=== PATIENT | female | born 1930 | race Caucasian/White ===

== ENCOUNTER → 2016-10-24 | Outpatient (CLI) | payer OTHER ==
[~2016-10-24] MED LIST: ASPI-496 PO; BISA10SU65 PR; CALC1TAB PO; CILO100T17 PO; DOCU-30 PO; ENOX40SY4 SQ; GABA300C10 PO; HYDR-3138 PO; INSU100I18 SQ-INSULIN; IPRA12.9 INH; LISI2.5T PO; MERO1VIA15 IV; METO25TA35 PO; NICO1PAT4 TD; PIPE3.375 IV; POLY17PO5 PO; PREG50CA PO; RANI150C PO; SIMV20TA3 PO; TRAM50TA2 PO; UBID100C11 PO
== END | disposition home or self-care (01) ==
LOC: CFH 09:54
PROVIDERS: ATTEND Internal Medicine Cardiovascular Disease
DX: I08.3 Combined rheumatic disorders of mitral, aortic and tricuspid valves (principal); I10 Essential (primary) hypertension; I37.1 Nonrheumatic pulmonary valve insufficiency; Z87.891 Personal history of nicotine dependence; Z86.73 Personal history of transient ischemic attack (TIA), and cerebral infarction without residual deficits; Z85.828 Personal history of other malignant neoplasm of skin
CPT/HCPCS: 93306

== ENCOUNTER → 2017-02-19 | Outpatient (CLI) | payer OTHER ==
[~2017-02-19] MED LIST changes: +DOCU-131 PO; -DOCU-30 PO; -HYDR-3138 PO; +HYDR-3237 PO; +NICO1PAT13 TD; -NICO1PAT4 TD; -UBID100C11 PO; +UBID100C41 PO
== END | disposition home or self-care (01) ==
LOC: CVU 11:44
PROVIDERS: ATTEND Surgery Vascular Surgery
DX: I70.202 Unspecified atherosclerosis of native arteries of extremities, left leg (principal); I74.5 Embolism and thrombosis of iliac artery; I74.8 Embolism and thrombosis of other arteries; I10 Essential (primary) hypertension; E11.9 Type 2 diabetes mellitus without complications; Z86.73 Personal history of transient ischemic attack (TIA), and cerebral infarction without residual deficits; Z87.891 Personal history of nicotine dependence; Z85.820 Personal history of malignant melanoma of skin; Z95.820 Peripheral vascular angioplasty status with implants and grafts
CPT/HCPCS: 93922; 93925

== ENCOUNTER → 2017-08-16 | Outpatient (CLI) | payer OTHER ==
[~2017-08-16] MED LIST changes: +NICO-486 TD; -NICO1PAT13 TD
== END | disposition home or self-care (01) ==
LOC: CVU 12:44
PROVIDERS: ATTEND Surgery Vascular Surgery
DX: I70.203 Unspecified atherosclerosis of native arteries of extremities, bilateral legs (principal); E11.9 Type 2 diabetes mellitus without complications; I10 Essential (primary) hypertension; Z72.0 Tobacco use; Z85.820 Personal history of malignant melanoma of skin; Z85.51 Personal history of malignant neoplasm of bladder; I25.2 Old myocardial infarction
CPT/HCPCS: 93922; 93925

== ENCOUNTER 2018-03-11 00:21 | Inpatient (IN) | payer OTHER ==
[~2018-03-11] VITALS: Ht 157.5 cm; Wt 61.6 kg
[2018-03-11 00:54] LABS: BASOPHILS # (AUTO) 0.06 x10^3/uL (0-0.1); BASOPHILS % (AUTO) 1 % (0-1); EOSINOPHILS # (AUTO) 0.09 x10^3/uL (0-0.4); EOSINOPHILS % (AUTO) 1 % (1-7); LYMPHOCYTES # (AUTO) 2.39 x10^3/uL (1-3.4); LYMPHOCYTES % (AUTO) 33 % (22-44); MD NO; MEAN CORPUSCULAR HGB CONC 34.3 g/dL (32.4-35.8); MEAN CORPUSCULAR VOLUME 90.3 fL (80-100); MEAN PLATELET VOLUME 8.6 fL (7.4-10.4); MONOCYTES # (AUTO) 0.43 x10^3/uL (0.2-0.8); MONOCYTES % (AUTO) 6 % (2-9); NEUTROPHILS # (AUTO) 4.19 x10^3/uL (1.8-6.8); NEUTROPHILS % (AUTO) 59 % (42-75); PLATELET COUNT 234 x10^3/uL (130-400); RED BLOOD COUNT 4.86 x10^6/uL (3.82-5.3); RED CELL DISTRIBUTION WIDTH 14.1 % (9.6-15.2)
[2018-03-11 00:57] LABS: PH, VENOUS 7.418 pH (7.320-7.420)
[2018-03-11] MEDS ORDERED: SODIUM CHLORIDE 0.9% 1,000ML IVBOLUS ONE (01:00)
[2018-03-11] MEDS ORDERED: INSULIN REGULAR 100 UNITS/ML, 3ML VIAL SQ-INSULIN ONE (01:00)
[2018-03-11 01:03] LABS: ALANINE AMINOTRANSFERASE 18 U/L (12-78); ANION GAP 10 mmol/L (5-15); CALCIUM 8.9 mg/dL (8.5-10.1); CHLORIDE 104 mmol/L (98-107)
[2018-03-11 01:06] LABS: ALKALINE PHOSPHATASE 101 U/L (45-117); BILIRUBIN,TOTAL 0.4 mg/dL (0.2-1.0); TOTAL PROTEIN 7.4 g/dL (6.4-8.2)
[2018-03-11 01:07] LABS: TROPONIN I < 0.015 ng/mL (0.000-0.045)
[2018-03-11 01:53] LABS: MICROSCOPIC AUTO
[2018-03-11 01:56] LABS: CULTURE INDICATED? YES
[2018-03-11] MEDS ORDERED: CEFTRIAXONE 1,000 MG in SODIUM CHLORIDE 0.9% 50 ML IV ONE (02:00)
[2018-03-11 02:22] LABS: ACETONE, SERUM Small (20mg/dL) mg/dL (Negative)
[2018-03-11] MEDS ORDERED: CEFTRIAXONE PMX 1GM/50ML 50 ML ONE (02:52)
[2018-03-11 04:55] VITALS: BP 114/69
[2018-03-11] MEDS ORDERED: hydrALAzine 20 MG/ML, 1ML IVPush PRN (05:00)
[2018-03-11] MEDS ORDERED: ONDANSETRON 2MG/ML, 2ML IVPush PRN (05:00)
[2018-03-11] MEDS ORDERED: ONDANSETRON ODT 4 MG PO PRN (05:00)
[2018-03-11] MEDS ORDERED: POLYETHYLENE GLYCOL 17 GM PACKET PO PRN (05:00)
[2018-03-11] MEDS ORDERED: INSULIN GLARGINE 100 UNITS/ML, PEN SQ-INSULIN ONE (05:00)
[2018-03-11] MEDS ORDERED: ACETAMINOPHEN 325 MG TABLET PO PRN (05:00)
[2018-03-11] MEDS ORDERED: CALCIUM CARBONATE 500 MG TAB.CHEW PO PRN (05:30)
[2018-03-11] MEDS ORDERED: IPRATROPIUM 0.5 MG/2.5 ML INHA NPPB PRN (05:30)
[2018-03-11] MEDS: SODIUM CHLORIDE 0.9% 1,000 ML IV SCH ×2 (05:39→16:22)
[2018-03-11] MEDS: HEPARIN 5,000 UNITS/ML, 1ML SQ SCH ×3 (05:45→20:41)
[2018-03-11 06:42] VITALS: BP 114/66
[2018-03-11] MEDS: PANTOPROZOLE 40MG TABLET PO SCH (07:52)
[2018-03-11] MEDS: INSULIN LISPRO 100 UNITS/ML, PEN SQ-INSULIN SCH ×4 (07:55→21:00)
[2018-03-11 09:16] LABS: ANION GAP 9 mmol/L (5-15); CALCIUM 8.3 mg/dL (8.5-10.1); CHLORIDE 114 mmol/L (98-107); CREATININE 1.08 mg/dL (0.55-1.02)
[2018-03-11] MEDS: CILOSTAZOL 100 MG TABLET PO SCH ×2 (10:30→20:41)
[2018-03-11] MEDS: ASPIRIN 81 MG TABLET EC PO SCH (10:30)
[2018-03-11] MEDS: PREGABALIN 25 MG CAPSULE PO SCH (10:30)
[2018-03-11] MEDS: NICOTINE 21 MG/24 HR PATCH.TD24 TD SCH (10:31)
[2018-03-11] MEDS: GABAPENTIN 300 MG CAPSULE PO SCH ×3 (10:34→20:41)
[2018-03-11 14:34] VITALS: BP 94/56
[2018-03-11 18:30] VITALS: BP 100/60
[2018-03-12 01:33] VITALS: BP 108/68
[2018-03-12] MEDS: CEFTRIAXONE 1,000 MG in SODIUM CHLORIDE 0.9% 50 ML IV SCH (02:34)
[2018-03-12] MEDS: HEPARIN 5,000 UNITS/ML, 1ML SQ SCH ×3 (04:41→20:03)
[2018-03-12 05:47] LABS: ANION GAP 7 mmol/L (5-15); CALCIUM 7.8 mg/dL (8.5-10.1); CHLORIDE 115 mmol/L (98-107)
[2018-03-12 05:49] LABS: CREATININE 0.95 mg/dL (0.55-1.02)
[2018-03-12 05:55] LABS: BASOPHILS # (AUTO) 0.05 x10^3/uL (0-0.1); BASOPHILS % (AUTO) 1 % (0-1); EOSINOPHILS # (AUTO) 0.11 x10^3/uL (0-0.4); EOSINOPHILS % (AUTO) 1 % (1-7); LYMPHOCYTES # (AUTO) 1.32 x10^3/uL (1-3.4); LYMPHOCYTES % (AUTO) 14 % (22-44); MD NO; MEAN CORPUSCULAR HGB CONC 33.1 g/dL (32.4-35.8); MEAN CORPUSCULAR VOLUME 90.6 fL (80-100); MEAN PLATELET VOLUME 8.6 fL (7.4-10.4); MONOCYTES # (AUTO) 0.32 x10^3/uL (0.2-0.8); MONOCYTES % (AUTO) 3 % (2-9); NEUTROPHILS # (AUTO) 7.97 x10^3/uL (1.8-6.8); NEUTROPHILS % (AUTO) 82 % (42-75); PLATELET COUNT 204 x10^3/uL (130-400); RED BLOOD COUNT 4.43 x10^6/uL (3.82-5.3); RED CELL DISTRIBUTION WIDTH 14.2 % (9.6-15.2)
[2018-03-12] MEDS: SODIUM CHLORIDE 0.9% 1,000 ML IV SCH ×2 (06:11→19:48)
[2018-03-12] MEDS: INSULIN LISPRO 100 UNITS/ML, PEN SQ-INSULIN SCH ×4 (07:26→20:09)
[2018-03-12 07:32] VITALS: BP 108/65
[2018-03-12] MEDS: PANTOPROZOLE 40MG TABLET PO SCH (07:36)
[2018-03-12 08:24] LABS: HEMOGLOBIN A1C 13.6 % (4.2-6.3)
[2018-03-12] MEDS: GABAPENTIN 300 MG CAPSULE PO SCH ×3 (09:38→19:48)
[2018-03-12] MEDS: ASPIRIN 81 MG TABLET EC PO SCH (09:38)
[2018-03-12] MEDS: CILOSTAZOL 100 MG TABLET PO SCH ×2 (09:38→19:47)
[2018-03-12] MEDS: PREGABALIN 25 MG CAPSULE PO SCH (09:38)
[2018-03-12] MEDS: NICOTINE 21 MG/24 HR PATCH.TD24 TD SCH (09:39)
[2018-03-12 13:49] VITALS: BP 100/57
[2018-03-12 18:56] VITALS: BP 114/80
[2018-03-12] MEDS ORDERED: INSULIN GLARGINE 100 UNITS/ML, PEN SQ-INSULIN SCH (21:00)
[2018-03-13 01:33] VITALS: BP 118/73
[2018-03-13] MEDS: CEFTRIAXONE 1,000 MG in SODIUM CHLORIDE 0.9% 50 ML IV SCH (02:56)
[2018-03-13] MEDS: HEPARIN 5,000 UNITS/ML, 1ML SQ SCH ×2 (04:26→13:43)
[2018-03-13] MEDS: INSULIN LISPRO 100 UNITS/ML, PEN SQ-INSULIN SCH ×2 (07:00→12:16)
[2018-03-13] MEDS: PANTOPROZOLE 40MG TABLET PO SCH (07:41)
[2018-03-13 07:45] VITALS: BP 130/67
[2018-03-13] MEDS: CILOSTAZOL 100 MG TABLET PO SCH (09:02)
[2018-03-13] MEDS: PREGABALIN 25 MG CAPSULE PO SCH (09:02)
[2018-03-13] MEDS: ASPIRIN 81 MG TABLET EC PO SCH (09:02)
[2018-03-13] MEDS: NICOTINE 21 MG/24 HR PATCH.TD24 TD SCH (09:03)
[2018-03-13] MEDS: SODIUM CHLORIDE 0.9% 1,000 ML IV SCH (10:47)
[2018-03-13] MEDS ORDERED: INSU100I13 SQ-INSULIN (11:25)
[2018-03-13] MEDS ORDERED: CEFD300C37 PO (11:25)
[2018-03-13 12:53] VITALS: BP 166/83
== END 2018-03-13 15:45 | disposition home health service (06) | DRG 682 ==
LOC: ED 01:04 → EDIP 02:00 → 3NE 04:50
PROVIDERS: ADMIT Hospitalist; ATTEND Hospitalist
DX: N17.9 Acute kidney failure, unspecified (principal); E43 Unspecified severe protein-calorie malnutrition; E87.1 Hypo-osmolality and hyponatremia; I13.0 Hypertensive heart and chronic kidney disease with heart failure and stage 1 through stage 4 chronic kidney disease, or unspecified chronic kidney disease; E11.65 Type 2 diabetes mellitus with hyperglycemia; E11.22 Type 2 diabetes mellitus with diabetic chronic kidney disease; E11.40 Type 2 diabetes mellitus with diabetic neuropathy, unspecified; I71.9 Aortic aneurysm of unspecified site, without rupture; I25.10 Atherosclerotic heart disease of native coronary artery without angina pectoris; E11.51 Type 2 diabetes mellitus with diabetic peripheral angiopathy without gangrene; K21.9 Gastro-esophageal reflux disease without esophagitis; N30.90 Cystitis, unspecified without hematuria; E86.0 Dehydration; F17.210 Nicotine dependence, cigarettes, uncomplicated; H91.90 Unspecified hearing loss, unspecified ear; I50.9 Heart failure, unspecified; N18.9 Chronic kidney disease, unspecified; B96.1 Klebsiella pneumoniae [K. pneumoniae] as the cause of diseases classified elsewhere; J44.9 Chronic obstructive pulmonary disease, unspecified; Z86.73 Personal history of transient ischemic attack (TIA), and cerebral infarction without residual deficits; Z90.49 Acquired absence of other specified parts of digestive tract; Z90.710 Acquired absence of both cervix and uterus; Z79.4 Long term (current) use of insulin; Z89.411 Acquired absence of right great toe; Z90.89 Acquired absence of other organs; Z68.24 Body mass index [BMI] 24.0-24.9, adult; Z88.5 Allergy status to narcotic agent; Z88.8 Allergy status to other drugs, medicaments and biological substances
CPT/HCPCS: 36415; 71045; 80048; 80053; 81001; 82010; 82803; 82962; 83036; 83735; 84100; 84484; 85025; 87077; 87086; 87186; 93005; 96360; 96361; 96372; 99285; G0378; J0696; J1644; J1815; J7030

== ENCOUNTER 2018-04-03 18:49 | Emergency (ER) | payer OTHER ==
[~2018-04-03] VITALS: Ht 162.6 cm; Wt 59.0 kg
[~2018-04-03 18:49] MED LIST changes: +CEFD300C37 PO; +INSU100I13 SQ-INSULIN
[2018-04-03 19:05] VITALS: BP 133/73
[2018-04-03 19:46] LABS: BASOPHILS # (AUTO) 0.02 x10^3/uL (0-0.1); BASOPHILS % (AUTO) 0 % (0-1); EOSINOPHILS # (AUTO) 0.18 x10^3/uL (0-0.4); EOSINOPHILS % (AUTO) 2 % (1-7); LYMPHOCYTES # (AUTO) 1.96 x10^3/uL (1-3.4); LYMPHOCYTES % (AUTO) 20 % (22-44); MD NO; MEAN CORPUSCULAR HEMOGLOBIN 30.7 pg (27.0-34.8); MEAN CORPUSCULAR HGB CONC 33.6 g/dL (32.4-35.8); MEAN CORPUSCULAR VOLUME 91.3 fL (80-100); MEAN PLATELET VOLUME 7.7 fL (7.4-10.4); MONOCYTES # (AUTO) 0.46 x10^3/uL (0.2-0.8); MONOCYTES % (AUTO) 5 % (2-9); NEUTROPHILS # (AUTO) 7.08 x10^3/uL (1.8-6.8); NEUTROPHILS % (AUTO) 73 % (42-75); PLATELET COUNT 276 x10^3/uL (130-400); RED BLOOD COUNT 5.19 x10^6/uL (3.82-5.3); RED CELL DISTRIBUTION WIDTH 15.1 % (9.6-15.2)
[2018-04-03 19:53] LABS: ALANINE AMINOTRANSFERASE 24 U/L (12-78); ALBUMIN 3.7 g/dL (3.4-5.0); ANION GAP 8 mmol/L (5-15); CALCIUM 9.6 mg/dL (8.5-10.1); CHLORIDE 108 mmol/L (98-107)
[2018-04-03 19:56] LABS: ALKALINE PHOSPHATASE 76 U/L (45-117); BILIRUBIN,TOTAL 0.5 mg/dL (0.2-1.0); CREATININE 1.24 mg/dL (0.55-1.02); TOTAL PROTEIN 8.3 g/dL (6.4-8.2)
[2018-04-03] MEDS ORDERED: SODIUM CHLORIDE FLUSH 10ML SYR IVF ONE (22:00)
[2018-04-03] MEDS ORDERED: OMNIPAQUE 350 MG/ML, 100ML BOTTLE ONE (22:46)
[2018-04-03 23:49] LABS: CULTURE INDICATED? NO; MICROSCOPIC NOT IND
== END 2018-04-04 00:52 | disposition home or self-care (01) ==
LOC: ED 22:32
DX: R10.84 Generalized abdominal pain (principal); I10 Essential (primary) hypertension; E11.9 Type 2 diabetes mellitus without complications; J44.9 Chronic obstructive pulmonary disease, unspecified; I25.10 Atherosclerotic heart disease of native coronary artery without angina pectoris; K21.9 Gastro-esophageal reflux disease without esophagitis; Z86.73 Personal history of transient ischemic attack (TIA), and cerebral infarction without residual deficits; Z90.710 Acquired absence of both cervix and uterus
CPT/HCPCS: 36415; 71045; 74177; 80053; 81003; 83690; 85025; 99285; Q9967

== ENCOUNTER → 2018-04-08 | Outpatient (CLI) | payer OTHER | END | disposition home or self-care (01) | LOC: RAD 09:49 | PROVIDERS: ATTEND Internal Medicine | DX: J44.9 Chronic obstructive pulmonary disease, unspecified (principal); I25.10 Atherosclerotic heart disease of native coronary artery without angina pectoris; E11.9 Type 2 diabetes mellitus without complications | CPT/HCPCS: 71250 ==

== ENCOUNTER → 2018-04-09 | Outpatient (CLI) | payer OTHER | END | disposition home or self-care (01) | LOC: CVU 08:09 | PROVIDERS: ATTEND Surgery Vascular Surgery | DX: I77.1 Stricture of artery (principal); I10 Essential (primary) hypertension; E11.9 Type 2 diabetes mellitus without complications; I25.2 Old myocardial infarction; Z87.891 Personal history of nicotine dependence; Z85.51 Personal history of malignant neoplasm of bladder | CPT/HCPCS: 93922; 93925 ==

== ENCOUNTER 2018-10-18 11:27 | Emergency (ER) | payer MEDICARE ==
[~2018-10-18] VITALS: Ht 157.5 cm; Wt 61.0 kg
--- NOTE | 2018-10-18 11:51 | NUR ---
MATERIALS AND CORROSION ENGINEER: PT TO ROOM FROM LOBBY VIA W/C
--- NOTE | 2018-10-18 12:18 | NUR ---
PT SENT TO ED FROM VASCULAR SPECIALIST MD SHETTY, PT STATES SHE HAS RIGHT LEG/BUTTOCK PAIN X2 WEEKS, HX PRIOR ARTERIAL GRAFT "THAT NEEDS WORK". RN UNABLE TO PALPATE RIGHT DORSALIS PEDIS PULSE, HOWEVER RT FOOT IS PINK, WARM AND DRY. CAP REFILL <3 SEC. PT A&O, RESPS EVEN AND UNLABORED. US AT BEDSIDE AT THIS TIME. PT ATTACHED TO BP AND SPO2 MONITORS. Addendum: 10/18/18 at 1229 by JACI PT SENT TO ED FROM VASCULAR SPECIALIST MD SHETTY, PT STATES SHE HAS LEFT LEG/BUTTOCK PAIN X2 WEEKS, HX PRIOR ARTERIAL GRAFT "THAT NEEDS WORK". RN UNABLE TO PALPATE LEFT DORSALIS PEDIS PULSE, HOWEVER RT FOOT IS PINK, WARM AND DRY. CAP REFILL <3 SEC. PT A&O, RESPS EVEN AND UNLABORED. PT ALSO NOTES "BOILS" TO SANDRA-AREA. AREA EXAMINED BY RN, ONE LESION NOTED TO LEFT GROIN, NO DRAINAGE OR SURROUNDING ERYTHEMA NOTED. US AT BEDSIDE AT THIS TIME. PT ATTACHED TO BP AND SPO2 MONITORS. US AT BEDSIDE AT THIS TIME.
[2018-10-18] MEDS ORDERED: FENTANYL PF 100 MCG/2ML IM ONE (12:30)
[2018-10-18] MEDS ORDERED: FENTANYL PF 100 MCG/2ML ONE (12:33)
[2018-10-18 12:37] LABS: BASOPHILS # (AUTO) 0.06 x10^3/uL (0-0.1); BASOPHILS % (AUTO) 1 % (0-1); EOSINOPHILS # (AUTO) 0.22 x10^3/uL (0-0.4); EOSINOPHILS % (AUTO) 3 % (1-7); LYMPHOCYTES # (AUTO) 2.36 x10^3/uL (1-3.4); LYMPHOCYTES % (AUTO) 33 % (22-44); MD NO; MEAN CORPUSCULAR HEMOGLOBIN 28.7 pg (27.0-34.8); MEAN CORPUSCULAR HGB CONC 33.3 g/dL (32.4-35.8); MEAN PLATELET VOLUME 7.7 fL (7.4-10.4); MONOCYTES # (AUTO) 0.45 x10^3/uL (0.2-0.8); MONOCYTES % (AUTO) 6 % (2-9); NEUTROPHILS # (AUTO) 4.12 x10^3/uL (1.8-6.8); NEUTROPHILS % (AUTO) 57 % (42-75); PLATELET COUNT 305 x10^3/uL (130-400); RED BLOOD COUNT 4.97 x10^6/uL (3.82-5.3); RED CELL DISTRIBUTION WIDTH 17.3 % (9.6-15.2)
[2018-10-18 12:44] LABS: ALBUMIN 3.5 g/dL (3.4-5.0); ANION GAP 7 mmol/L (5-15); CHLORIDE 112 mmol/L (98-107); CREATININE 1.18 mg/dL (0.55-1.02)
--- NOTE | 2018-10-18 13:38 | NUR ---
PT SLEEPING, REPSS EVEN AND UNLABORED. SPO2 90% ON ROOM AIR, OXYGEN APPLIED VIA NC AT 2L/MIN.
--- NOTE | 2018-10-18 14:30 | NUR ---
PT REQUESTS EXAM BY CUBA GRIFFITH AT BEDSIDE FOR EXAM.
--- NOTE | 2018-10-18 14:42 | NUR ---
EXAM COMPLETED BY MD, PT UP TO BATHROOM WITH FAMILY ASSIST.
[2018-10-18 14:50] VITALS: BP 127/55
--- NOTE | 2018-10-18 14:51 | NUR ---
PT AND FRIEND GIVEN DC INSTRUCTIONS. PT AMBULATORY WITH STEADY GAIT, GIVEN WC ESCORT TO DC. PT A&O, RESPS EVEN AND UNLABORED, NADN AT DC. PAIN TOLRABLE AT TIME OF DC. FRIEND TO DRIVE PT HOME.
== END 2018-10-18 14:52 | disposition home or self-care (01) ==
LOC: ED 12:08
DX: M79.662 Pain in left lower leg (principal); J44.9 Chronic obstructive pulmonary disease, unspecified; E11.9 Type 2 diabetes mellitus without complications; I25.10 Atherosclerotic heart disease of native coronary artery without angina pectoris; I10 Essential (primary) hypertension; F17.200 Nicotine dependence, unspecified, uncomplicated; Z86.73 Personal history of transient ischemic attack (TIA), and cerebral infarction without residual deficits; Z90.49 Acquired absence of other specified parts of digestive tract
CPT/HCPCS: 36415; 80048; 82040; 83605; 85025; 93926; 93971; 96372; 99284; J3010

== ENCOUNTER 2018-12-19 09:35 | Outpatient (CLI) | payer MEDICARE | END 2018-12-19 23:59 | disposition home or self-care (01) | LOC: CVU 09:35 | PROVIDERS: ATTEND Internal Medicine | DX: I70.213 Atherosclerosis of native arteries of extremities with intermittent claudication, bilateral legs (principal); I74.3 Embolism and thrombosis of arteries of the lower extremities; I10 Essential (primary) hypertension; E78.5 Hyperlipidemia, unspecified; I25.2 Old myocardial infarction; E11.9 Type 2 diabetes mellitus without complications; Z87.891 Personal history of nicotine dependence; Z86.73 Personal history of transient ischemic attack (TIA), and cerebral infarction without residual deficits | CPT/HCPCS: 93922; 93925 ==

== ENCOUNTER 2019-04-28 08:16 | Observation (INO) | payer MEDICARE ==
[~2019-04-28] VITALS: Ht 154.9 cm; Wt 61.2 kg
[2019-04-28] MEDS ORDERED: ACETAMINOPHEN 500 MG TABLET PO ONE (09:00)
[2019-04-28] MEDS ORDERED: ACETAMINOPHEN 500 MG TABLET ONE (10:03)
--- NOTE | 2019-04-28 10:21 | NUR ---
pt rePT RESTING ON GURNEY. DENIES NEED FOR TYLENOL RX AT THIS TIME. FAMILY AT BEDSIDE. ALL CONCERNS ADRESSED. AWAITING US RESULTS.
[2019-04-28 11:16] LABS: BASOPHILS # (AUTO) 0.06 x10^3/uL (0-0.1); BASOPHILS % (AUTO) 1 % (0-1); EOSINOPHILS # (AUTO) 0.15 x10^3/uL (0-0.4); EOSINOPHILS % (AUTO) 2 % (1-7); LYMPHOCYTES # (AUTO) 2.25 x10^3/uL (1-3.4); LYMPHOCYTES % (AUTO) 31 % (22-44); MD NO; MEAN CORPUSCULAR VOLUME 87.7 fL (80-100); MEAN PLATELET VOLUME 7.7 fL (7.4-10.4); MONOCYTES # (AUTO) 0.46 x10^3/uL (0.2-0.8); MONOCYTES % (AUTO) 6 % (2-9); NEUTROPHILS # (AUTO) 4.28 x10^3/uL (1.8-6.8); NEUTROPHILS % (AUTO) 59 % (42-75); PLATELET COUNT 315 x10^3/uL (130-400); RED BLOOD COUNT 5.17 x10^6/uL (3.82-5.3); RED CELL DISTRIBUTION WIDTH 17.4 % (9.6-15.2)
--- NOTE | 2019-04-28 11:22 | NUR ---
PT ASSISTED TO BEDSIDE CAMODE. GAIT STEADY. BACK TO [facility]. ALL CONCERNS ADRESSED.
[2019-04-28 11:26] LABS: ANION GAP 3 mmol/L (5-15); CALCIUM 8.8 mg/dL (8.5-10.1); CHLORIDE 115 mmol/L (98-107); CREATININE 1.09 mg/dL (0.55-1.02)
[2019-04-28] MEDS ORDERED: HYDROmorphone 1 MG/ML, 1ML VIAL ONE (11:28)
[2019-04-28] MEDS ORDERED: METHOCARBAMOL 500 MG TABLET ONE (11:29)
[2019-04-28] MEDS ORDERED: HYDROmorphone 1 MG/ML, 1ML INJ IM ONE (11:30)
[2019-04-28] MEDS ORDERED: METHOCARBAMOL 500 MG TABLET PO ONE (11:30)
--- NOTE | 2019-04-28 12:03 | NUR ---
RECEIVED REPORT FROM GUILLERMO BURNETT. ASSUMING CARE AT THIS TIME.
--- NOTE | 2019-04-28 12:09 | NUR ---
PT RESTING COMFORTABLY ON GURNEY. PT STATES PAIN RELIEVED FROM PAIN MEDS AND THAT SHE CAN REST. FALL PRECAUTIONS IN PLACE. CALL LIGHT IN REACH.
--- NOTE | 2019-04-28 13:11 | NUR ---
HAD TO WAKE PT UP TO START IV. PT STATES PAIN MEDS HAVE BEEN EFFECTIVE.
[2019-04-28] MEDS: NS + 20MEQ KCL 1,000 ML IV SCH (14:07)
--- NOTE | 2019-04-28 14:09 | NUR ---
PT RESTING ON GURNEY WITH DAUGHTER AT BEDSIDE. FALL PRECAUTIONS IN PLACE.
[2019-04-28] MEDS ORDERED: hydrALAzine 20 MG/ML, 1ML IVPush PRN (14:30)
[2019-04-28] MEDS ORDERED: DOCUSATE 100 MG CAPSULE PO PRN (14:30)
[2019-04-28] MEDS ORDERED: PROMETHAZINE 25 MG/ML, 1ML IM PRN (14:30)
[2019-04-28] MEDS ORDERED: BACLOFEN 10 MG TABLET PO PRN (14:30)
[2019-04-28] MEDS ORDERED: DEXTROSE 4 GM TAB.CHEW PO PRN (14:30)
[2019-04-28] MEDS ORDERED: BISACODYL 10 MG SUPP PR PRN (14:30)
[2019-04-28] MEDS ORDERED: ONDANSETRON ODT 4 MG PO PRN (14:30)
[2019-04-28] MEDS ORDERED: ACETAMINOPHEN 325 MG TABLET PO PRN (14:30)
[2019-04-28] MEDS ORDERED: DEXTROSE 50%, 50ML SYRINGE IVPush PRN (14:30)
[2019-04-28] MEDS ORDERED: ONDANSETRON 2MG/ML, 2ML IVPush PRN (14:30)
[2019-04-28] MEDS ORDERED: GLUCAGON 1 MG IM PRN (14:30)
--- NOTE | 2019-04-28 14:43 | NUR ---
REPORT GIVEN TO MELANY BURNETT
[2019-04-28] MEDS ORDERED: HEPARIN 5,000 UNITS/ML, 1ML ONE (15:02)
[2019-04-28] MEDS ORDERED: NS + 20MEQ KCL 1,000 ML IV ONE (15:02)
[2019-04-28] MEDS ORDERED: NICOTINE 14MG/24 HR PATCH.TD24 ONE (15:02)
[2019-04-28] MEDS: HEPARIN 5,000 UNITS/ML, 1ML SQ SCH ×2 (15:10→21:07)
[2019-04-28] MEDS: NICOTINE 14MG/24 HR PATCH.TD24 TD SCH (15:10)
--- NOTE | 2019-04-28 15:25 | NUR ---
PT GIVEN OJ JUICE, PT MEDICATED PER EMAR. VSS. BG 92
--- NOTE | 2019-04-28 15:31 | NUR ---
MEDICAL SUP CALLED AND INFORMED OF NEXT BG CHECK.
[2019-04-28 15:44] VITALS: BP 138/61
[2019-04-28] MEDS ORDERED: IPRATROPIUM 0.5 MG/2.5 ML INHA NPPB PRN (16:00)
[2019-04-28] MEDS: INSULIN LISPRO 100 UNITS/ML, PEN SQ-INSULIN SCH ×2 (16:00→21:07)
[2019-04-28] MEDS: GABAPENTIN 300 MG CAPSULE PO SCH ×2 (16:00→21:00)
[2019-04-28] MEDS: OXYcodone IR 5MG TABLET PO PRN (17:47)
[2019-04-28 19:27] VITALS: BP 131/64
[2019-04-28] MEDS ORDERED: INSULIN GLARGINE 100 UNITS/ML, PEN SQ-INSULIN SCH (21:00)
[2019-04-28] MEDS: CILOSTAZOL 100 MG TABLET PO SCH (21:02)
[2019-04-28] MEDS: morphine SULFATE 10 MG/ML, 1ML IVPush PRN (21:04)
[2019-04-28] MEDS: SODIUM CHLORIDE FLUSH 10ML SYR IVF SCH (21:05)
[2019-04-29 01:18] VITALS: BP 126/58
[2019-04-29] MEDS: morphine SULFATE 10 MG/ML, 1ML IVPush PRN ×2 (02:04→06:44)
[2019-04-29] MEDS: NS + 20MEQ KCL 1,000 ML IV SCH ×2 (03:38→16:47)
[2019-04-29 04:49] LABS: BASOPHILS # (AUTO) 0.06 x10^3/uL (0-0.1); BASOPHILS % (AUTO) 1 % (0-1); EOSINOPHILS # (AUTO) 0.25 x10^3/uL (0-0.4); EOSINOPHILS % (AUTO) 2 % (1-7); LYMPHOCYTES # (AUTO) 2.15 x10^3/uL (1-3.4); LYMPHOCYTES % (AUTO) 20 % (22-44); MD NO; MEAN CORPUSCULAR HEMOGLOBIN 28.8 pg (27.0-34.8); MEAN CORPUSCULAR HGB CONC 32.1 g/dL (32.4-35.8); MEAN CORPUSCULAR VOLUME 89.8 fL (80-100); MEAN PLATELET VOLUME 7.7 fL (7.4-10.4); MONOCYTES # (AUTO) 0.55 x10^3/uL (0.2-0.8); MONOCYTES % (AUTO) 5 % (2-9); NEUTROPHILS # (AUTO) 7.54 x10^3/uL (1.8-6.8); NEUTROPHILS % (AUTO) 72 % (42-75); PLATELET COUNT 346 x10^3/uL (130-400); RED BLOOD COUNT 4.92 x10^6/uL (3.82-5.3); RED CELL DISTRIBUTION WIDTH 17.3 % (9.6-15.2)
[2019-04-29 04:53] LABS: ANION GAP 5 mmol/L (5-15); CALCIUM 8.1 mg/dL (8.5-10.1); CHLORIDE 112 mmol/L (98-107)
[2019-04-29 04:55] LABS: CREATININE 0.97 mg/dL (0.55-1.02)
[2019-04-29] MEDS: HEPARIN 5,000 UNITS/ML, 1ML SQ SCH ×2 (05:43→15:51)
[2019-04-29] MEDS: INSULIN LISPRO 100 UNITS/ML, PEN SQ-INSULIN SCH ×3 (07:00→16:00)
[2019-04-29 07:30] VITALS: BP 153/67
[2019-04-29] MEDS: SODIUM CHLORIDE FLUSH 10ML SYR IVF SCH (08:46)
[2019-04-29] MEDS: CILOSTAZOL 100 MG TABLET PO SCH (08:54)
[2019-04-29] MEDS: GABAPENTIN 300 MG CAPSULE PO SCH ×3 (08:54→16:00)
[2019-04-29] MEDS ORDERED: ASPIRIN 81 MG TABLET EC PO SCH (09:00)
[2019-04-29] MEDS ORDERED: FAMOTIDINE 20 MG TABLET PO SCH (09:00)
[2019-04-29] MEDS ORDERED: PREGABALIN 25 MG CAPSULE PO SCH (09:00)
[2019-04-29] MEDS: OXYcodone IR 5MG TABLET PO PRN (11:26)
[2019-04-29 13:45] VITALS: BP 157/69
[2019-04-29] MEDS ORDERED: METHOCARBAMOL 500 MG TABLET PO PRN (14:30)
[2019-04-29] MEDS ORDERED: LIDODERM 5% PATCH TD SCH (14:30)
[2019-04-29] MEDS ORDERED: GABA300C10 PO (15:19)
[2019-04-29] MEDS ORDERED: METH500T7 PO (15:19)
[2019-04-29] MEDS ORDERED: LIDO700A20 TD (15:19)
[2019-04-29] MEDS ORDERED: LIDODERM 5% PATCH TD ONE (16:00)
[2019-04-29] MEDS: NICOTINE 14MG/24 HR PATCH.TD24 TD SCH (16:09)
== END 2019-04-29 18:10 | disposition home or self-care (01) ==
LOC: ED 10:31 → INTOOBSV 13:00 → EDIP 13:00 → SUATTDRO 13:29 → 3N 15:28
PROVIDERS: ADMIT Internal Medicine; ATTEND Internal Medicine
DX: R10.30 Lower abdominal pain, unspecified (principal); E11.51 Type 2 diabetes mellitus with diabetic peripheral angiopathy without gangrene; I11.0 Hypertensive heart disease with heart failure; F17.210 Nicotine dependence, cigarettes, uncomplicated; I25.10 Atherosclerotic heart disease of native coronary artery without angina pectoris; I50.9 Heart failure, unspecified; J44.9 Chronic obstructive pulmonary disease, unspecified; K59.00 Constipation, unspecified; E11.42 Type 2 diabetes mellitus with diabetic polyneuropathy; Z66 Do not resuscitate; Z86.73 Personal history of transient ischemic attack (TIA), and cerebral infarction without residual deficits; M51.36 Other intervertebral disc degeneration, lumbar region; M41.9 Scoliosis, unspecified; Z79.82 Long term (current) use of aspirin; Z79.4 Long term (current) use of insulin
CPT/HCPCS: 36415; 72110; 73502; 80048; 82962; 85025; 93926; 93971; 96372; 96374; 96376; 99284; G0378; J1170; J1644; J1815; J2270; J3480

== ENCOUNTER → 2019-05-15 | Outpatient (CLI) | payer MEDICARE ==
[~2019-05-15] MED LIST changes: +LIDO700A20 TD; +METH500T7 PO
== END | disposition home or self-care (01) ==
LOC: CFH 12:33
PROVIDERS: ATTEND Internal Medicine
DX: I71.9 Aortic aneurysm of unspecified site, without rupture (principal); M54.31 Sciatica, right side; E11.69 Type 2 diabetes mellitus with other specified complication; M51.37 Other intervertebral disc degeneration, lumbosacral region; M48.07 Spinal stenosis, lumbosacral region; I13.10 Hypertensive heart and chronic kidney disease without heart failure, with stage 1 through stage 4 chronic kidney disease, or unspecified chronic kidney disease; J44.9 Chronic obstructive pulmonary disease, unspecified; K21.9 Gastro-esophageal reflux disease without esophagitis; F17.200 Nicotine dependence, unspecified, uncomplicated; Z86.73 Personal history of transient ischemic attack (TIA), and cerebral infarction without residual deficits; Z88.5 Allergy status to narcotic agent; Z88.9 Allergy status to unspecified drugs, medicaments and biological substances
CPT/HCPCS: 72148

== ENCOUNTER 2019-10-28 10:35 | Inpatient (IN) | payer MEDICARE ==
[~2019-10-28] VITALS: Ht 154.9 cm; Wt 62.0 kg
[~2019-10-28 10:35] MED LIST changes: +SIMV20TA19 PO; -SIMV20TA3 PO
--- NOTE | 2019-10-28 11:05 | NUR ---
PT WITH C/O SCIATIC NERVE PAIN, STATES SHE IS HAVING PAIN SHOOTING FROM HER BACK THEN HIP THEN DOWN HER LEG ON THE RIGHT SIDE. PT STATES SHE CANNOT GET COMFORTABLE SITTING OR EVEN LYING DOWN SHE IS IN PAIN. PT STATES PAIN HAS GOTTON WORSE OVER THE LAST 3 DAYS. PT HAS HAD A BAD UTI AND HAS FINISHED UP HER TWO WEEK ABX TREATMENT. PT ALSO HAVING SOME INCREASED REDNESS AND SWELLING TO BLE. PT DENIES CP/SOB AT THIS TIME.
[2019-10-28] MEDS ORDERED: ONDANSETRON 2MG/ML, 2ML ONE (11:20)
[2019-10-28] MEDS ORDERED: MORPHINE SULFATE 4 MG/ML, 1ML ONE (11:20)
[2019-10-28 11:27] LABS: BASOPHILS # (AUTO) 0.06 x10^3/uL (0-0.1); BASOPHILS % (AUTO) 1 % (0-1); EOSINOPHILS # (AUTO) 0.14 x10^3/uL (0-0.4); EOSINOPHILS % (AUTO) 2 % (1-7); LYMPHOCYTES # (AUTO) 1.75 x10^3/uL (1-3.4); LYMPHOCYTES % (AUTO) 27 % (22-44); MD NO; MEAN CORPUSCULAR HEMOGLOBIN 28.8 pg (27.0-34.8); MEAN CORPUSCULAR HGB CONC 33.2 g/dL (32.4-35.8); MEAN CORPUSCULAR VOLUME 86.8 fL (80-100); MONOCYTES # (AUTO) 0.39 x10^3/uL (0.2-0.8); MONOCYTES % (AUTO) 6 % (2-9); NEUTROPHILS # (AUTO) 4.26 x10^3/uL (1.8-6.8); NEUTROPHILS % (AUTO) 65 % (42-75); PLATELET COUNT 329 x10^3/uL (130-400); RED BLOOD COUNT 5.07 x10^6/uL (3.82-5.3); RED CELL DISTRIBUTION WIDTH 16.2 % (9.6-15.2)
[2019-10-28] MEDS ORDERED: MORPHINE SULFATE 4 MG/ML, 1ML IVPush PRN (11:30)
[2019-10-28] MEDS ORDERED: ONDANSETRON 2MG/ML, 2ML IVPush ONE (11:30)
[2019-10-28 11:41] LABS: ALBUMIN 3.4 g/dL (3.4-5.0); ANION GAP 6 mmol/L (5-15); CALCIUM 8.4 mg/dL (8.5-10.1); CHLORIDE 113 mmol/L (98-107)
[2019-10-28 11:46] LABS: ALKALINE PHOSPHATASE 99 U/L (45-117); BILIRUBIN,TOTAL 0.6 mg/dL (0.2-1.0); CREATININE 1.38 mg/dL (0.55-1.02); TOTAL PROTEIN 7.9 g/dL (6.4-8.2); TROPONIN I < 0.015 ng/mL (0.000-0.045)
[2019-10-28 11:53] LABS: ALANINE AMINOTRANSFERASE 17 U/L (12-78)
--- NOTE | 2019-10-28 11:53 | NUR ---
PT STRAIGHT CATHED, SENT SPECIMEN TO LAB. PT NOW TO HAVE DUPLEX DONE, VSS. NO OTHER NEEDS AT THIS TIME
[2019-10-28] MEDS ORDERED: SODIUM CHLORIDE FLUSH 10ML SYR IVF ONE (12:00)
[2019-10-28 12:02] LABS: CULTURE INDICATED? YES; MICROSCOPIC AUTO
--- NOTE | 2019-10-28 12:49 | NUR ---
PT PLACED ON 3.5L NC POST ART LIBRARIAN, PER PT GRAND-DAUGHTER PT IS SUPPOSED TO WEAR 3L CONTINUOUSLY AT HOME, PT WEARS ONLY OCCASIONALY AT NOC
--- NOTE | 2019-10-28 12:56 | NUR ---
AWAITING BC TO BE DRAWN, WILL HANG ABX ORDERED
[2019-10-28] MEDS ORDERED: CEFTRIAXONE PMX 1GM/50ML 50 ML ONE (13:18)
[2019-10-28] MEDS ORDERED: AMLO-150 PO (13:36)
[2019-10-28] MEDS ORDERED: OMEP-110 PO (13:36)
[2019-10-28] MEDS ORDERED: TIOT4MIS3 INH (13:36)
[2019-10-28] MEDS ORDERED: ATORVASTATIN PO (13:36)
[2019-10-28] MEDS ORDERED: PREG100C PO (13:36)
--- NOTE | 2019-10-28 13:37 | NUR ---
break RN note, report received from LEX Dougherty: pt seen and assessed by admitting MD. rocephin gtt initiated after blood cx. pt denies pain. pt a&o, resps even and unlabored, nsr on environmental monitoring specialist with no ectopy. pt awaiting transport to medical floor at this time.
--- NOTE | 2019-10-28 13:39 | NUR ---
admitting MD notified that med rec has been completed and requires review.
--- NOTE | 2019-10-28 13:49 | NUR ---
US results reviewed by admitting MD.
[2019-10-28] MEDS ORDERED: ONDANSETRON 2MG/ML, 2ML IVPush PRN (14:00)
[2019-10-28] MEDS ORDERED: LABETALOL 5MG/ML, 20ML IVPush PRN (14:00)
[2019-10-28] MEDS ORDERED: CEFTRIAXONE PMX 1GM/50ML 50 ML IVPB ONE (14:00)
[2019-10-28] MEDS ORDERED: DOCUSATE 100 MG CAPSULE PO PRN (14:00)
[2019-10-28] MEDS ORDERED: BISACODYL 10 MG SUPP PR PRN (14:00)
[2019-10-28] MEDS ORDERED: POLYETHYLENE GLYCOL 17 GM PACKET PO PRN (14:00)
[2019-10-28] MEDS ORDERED: ONDANSETRON ODT 4 MG PO PRN (14:00)
[2019-10-28] MEDS ORDERED: DIPHENHYDRAMINE 25 MG CAPSULE PO PRN (14:00)
[2019-10-28] MEDS ORDERED: hydrALAzine 20 MG/ML, 1ML IVPush PRN (14:00)
[2019-10-28 14:23] VITALS: BP 132/73
[2019-10-28] MEDS ORDERED: IPRATROPIUM 0.5 MG/2.5 ML INHA HHN PRN (14:30)
[2019-10-28] MEDS ORDERED: ENOXAPARIN 40 MG/0.4 ML SQ SCH (14:30)
[2019-10-28] MEDS: PREGABALIN 100 MG CAPSULE PO SCH ×2 (15:17→21:50)
[2019-10-28] MEDS: NS + 20MEQ KCL 1,000 ML IV SCH (15:18)
[2019-10-28] MEDS: NICOTINE 21 MG/24 HR PATCH.TD24 TD SCH (15:18)
[2019-10-28] MEDS: INSULIN LISPRO 100 UNITS/ML, PEN SQ-INSULIN SCH ×2 (16:00→20:32)
[2019-10-28] MEDS: MORPHINE SULFATE 4 MG/ML, 1ML IVPush PRN ×2 (17:17→22:23)
[2019-10-28 19:03] VITALS: BP 112/72
[2019-10-28] MEDS: INSULIN GLARGINE 100 UNITS/ML, PEN SQ-INSULIN SCH (21:48)
[2019-10-28] MEDS: CILOSTAZOL 100 MG TABLET PO SCH (21:50)
[2019-10-28] MEDS: ALBUTEROL SULFATE 2.5 MG/3 ML NPPB SCH (22:09)
[2019-10-28] MEDS: BUDESONIDE 0.5 MG/2 ML INHA NPPB SCH (22:09)
[2019-10-29] MEDS: NS + 20MEQ KCL 1,000 ML IV SCH ×3 (01:16→21:36)
[2019-10-29 01:47] VITALS: BP 123/59
[2019-10-29] MEDS ORDERED: LIDODERM 5% PATCH TD ONE (02:00)
[2019-10-29] MEDS: MORPHINE SULFATE 4 MG/ML, 1ML IVPush PRN ×2 (02:25→06:28)
[2019-10-29] MEDS: ACETAMINOPHEN 325 MG TABLET PO PRN ×2 (04:58→10:30)
[2019-10-29 05:49] LABS: ANION GAP 7 mmol/L (5-15); CALCIUM 7.9 mg/dL (8.5-10.1); CHLORIDE 110 mmol/L (98-107)
[2019-10-29 05:52] LABS: BASOPHILS # (AUTO) 0.03 x10^3/uL (0-0.1); BASOPHILS % (AUTO) 0 % (0-1); EOSINOPHILS # (AUTO) 0.14 x10^3/uL (0-0.4); EOSINOPHILS % (AUTO) 1 % (1-7); LYMPHOCYTES % (AUTO) 15 % (22-44); MD NO; MEAN CORPUSCULAR HEMOGLOBIN 28.3 pg (27.0-34.8); MEAN CORPUSCULAR HGB CONC 32.5 g/dL (32.4-35.8); MEAN CORPUSCULAR VOLUME 86.9 fL (80-100); MEAN PLATELET VOLUME 8.6 fL (7.4-10.4); MONOCYTES # (AUTO) 0.35 x10^3/uL (0.2-0.8); MONOCYTES % (AUTO) 3 % (2-9); NEUTROPHILS # (AUTO) 8.32 x10^3/uL (1.8-6.8); NEUTROPHILS % (AUTO) 80 % (42-75); PLATELET COUNT 281 x10^3/uL (130-400); RED BLOOD COUNT 4.49 x10^6/uL (3.82-5.3); RED CELL DISTRIBUTION WIDTH 16.2 % (9.6-15.2)
[2019-10-29 06:00] LABS: ALANINE AMINOTRANSFERASE 17 U/L (12-78); ALKALINE PHOSPHATASE 90 U/L (45-117); BILIRUBIN,TOTAL 0.6 mg/dL (0.2-1.0); CREATININE 0.94 mg/dL (0.55-1.02)
[2019-10-29] MEDS: INSULIN LISPRO 100 UNITS/ML, PEN SQ-INSULIN SCH ×4 (07:00→21:37)
[2019-10-29 07:30] VITALS: BP 153/63
[2019-10-29] MEDS ORDERED: OMEPRAZOLE 20 MG CAPSULE.DR PO SCH (09:00)
[2019-10-29] MEDS ORDERED: TEMPLATE NON-FORMULARY MED. (Ubidecarenone** (Co Q-10**) 100 MG) PO SCH (09:00)
[2019-10-29] MEDS: ALBUTEROL SULFATE 2.5 MG/3 ML NPPB SCH ×2 (09:00→19:22)
[2019-10-29] MEDS: BUDESONIDE 0.5 MG/2 ML INHA NPPB SCH ×2 (09:00→19:22)
[2019-10-29] MEDS ORDERED: LIDODERM 5% PATCH TD SCH (10:00)
[2019-10-29] MEDS: AMLODIPINE 5 MG TABLET PO SCH (10:30)
[2019-10-29] MEDS: ASPIRIN 81 MG TABLET EC PO SCH (10:30)
[2019-10-29] MEDS: CILOSTAZOL 100 MG TABLET PO SCH ×2 (10:30→21:36)
[2019-10-29] MEDS: PREGABALIN 100 MG CAPSULE PO SCH ×2 (10:30→17:22)
[2019-10-29] MEDS: ATORVASTATIN 10 MG TABLET PO SCH (10:30)
[2019-10-29] MEDS ORDERED: HYDROmorphone 1 MG/ML, 1ML INJ IV PRN (11:00)
[2019-10-29] MEDS: HYDROmorphone 2 MG/ML, 1ML IV PRN ×2 (11:26→21:49)
[2019-10-29 13:41] VITALS: BP 95/53
[2019-10-29] MEDS ORDERED: CEFTRIAXONE PMX 1GM/50ML 50 ML IV SCH (14:00)
[2019-10-29] MEDS: NICOTINE 21 MG/24 HR PATCH.TD24 TD SCH (14:39)
[2019-10-29] MEDS: LIDODERM REMOVE PATCH NOTE XX SCH (14:39)
[2019-10-29] MEDS: ENOXAPARIN 30 MG/0.3 ML SQ SCH (14:40)
[2019-10-29 20:52] VITALS: BP 94/53
[2019-10-29] MEDS: INSULIN GLARGINE 100 UNITS/ML, PEN SQ-INSULIN SCH (21:37)
[2019-10-30] MEDS: PREGABALIN 100 MG CAPSULE PO SCH ×4 (00:04→21:20)
[2019-10-30 00:57] VITALS: BP 116/65
[2019-10-30] MEDS: HYDROmorphone 2 MG/ML, 1ML IV PRN ×2 (02:05→07:46)
[2019-10-30] MEDS: LIDODERM 5% PATCH TD SCH (02:06)
[2019-10-30] MEDS: LEVOTHYROXINE 88 MCG TABLET PO SCH (05:36)
[2019-10-30] MEDS: INSULIN LISPRO 100 UNITS/ML, PEN SQ-INSULIN SCH ×4 (07:00→21:00)
[2019-10-30] MEDS ORDERED: PANTOPRAZOLE 40MG TABLET PO SCH (07:30)
[2019-10-30 07:43] VITALS: BP 173/70
[2019-10-30] MEDS ORDERED: PANTOPRAZOLE 40 MG IV IVPush SCH ×2 (09:00)
[2019-10-30] MEDS: BUDESONIDE 0.5 MG/2 ML INHA NPPB SCH ×2 (09:45→19:17)
[2019-10-30] MEDS: ALBUTEROL SULFATE 2.5 MG/3 ML NPPB SCH ×2 (09:45→19:17)
[2019-10-30 10:00] VITALS: BP 119/55
[2019-10-30] MEDS: CILOSTAZOL 100 MG TABLET PO SCH ×2 (10:09→21:19)
[2019-10-30] MEDS: ATORVASTATIN 10 MG TABLET PO SCH (10:09)
[2019-10-30] MEDS: AMLODIPINE 5 MG TABLET PO SCH (10:09)
[2019-10-30] MEDS: ASPIRIN 81 MG TABLET EC PO SCH (10:09)
[2019-10-30] MEDS: AMPICILLIN 500 MG in SODIUM CHLORIDE 0.9% 100 ML IV SCH ×3 (12:11→23:17)
[2019-10-30] MEDS: METHOCARBAMOL 500 MG TABLET PO SCH ×3 (12:12→21:19)
[2019-10-30] MEDS: KETOROLAC 30 MG/1 ML IVPush PRN (12:34)
[2019-10-30 13:34] VITALS: BP 122/47
[2019-10-30] MEDS: LIDODERM REMOVE PATCH NOTE XX SCH (14:00)
[2019-10-30] MEDS: ENOXAPARIN 30 MG/0.3 ML SQ SCH (15:17)
[2019-10-30] MEDS: NICOTINE 21 MG/24 HR PATCH.TD24 TD SCH (15:17)
[2019-10-30] MEDS: TAMSULOSIN 0.4 MG CAP.ER.24H PO SCH (16:10)
[2019-10-30] MEDS: CALCIUM CARBONATE 500 MG TABLET PO SCH ×2 (16:10→21:20)
[2019-10-30 20:46] VITALS: BP 132/64
[2019-10-30] MEDS: INSULIN GLARGINE 100 UNITS/ML, PEN SQ-INSULIN SCH (21:20)
[2019-10-31 00:32] VITALS: BP 114/56
[2019-10-31] MEDS: LIDODERM 5% PATCH TD SCH (01:58)
[2019-10-31] MEDS: KETOROLAC 30 MG/1 ML IVPush PRN ×2 (04:40→15:17)
[2019-10-31] MEDS: LEVOTHYROXINE 88 MCG TABLET PO SCH (05:23)
[2019-10-31] MEDS: METHOCARBAMOL 500 MG TABLET PO SCH ×4 (05:23→21:12)
[2019-10-31] MEDS: AMPICILLIN 500 MG in SODIUM CHLORIDE 0.9% 100 ML IV SCH ×4 (05:23→23:22)
[2019-10-31] MEDS: PANTOPRAZOLE 40MG TABLET PO SCH (05:23)
[2019-10-31 06:48] VITALS: BP 130/55
[2019-10-31] MEDS: INSULIN LISPRO 100 UNITS/ML, PEN SQ-INSULIN SCH ×4 (07:00→21:14)
[2019-10-31] MEDS: ALBUTEROL SULFATE 2.5 MG/3 ML NPPB SCH ×2 (07:35→21:54)
[2019-10-31] MEDS: BUDESONIDE 0.5 MG/2 ML INHA NPPB SCH ×2 (07:35→21:54)
[2019-10-31] MEDS: CILOSTAZOL 100 MG TABLET PO SCH ×2 (09:00→21:12)
[2019-10-31] MEDS: PREGABALIN 100 MG CAPSULE PO SCH ×3 (09:00→21:13)
[2019-10-31] MEDS: AMLODIPINE 5 MG TABLET PO SCH (09:00)
[2019-10-31] MEDS: ATORVASTATIN 10 MG TABLET PO SCH (09:00)
[2019-10-31] MEDS: CHOLECALCIFEROL 1,000 UNIT TABLET PO SCH (09:00)
[2019-10-31] MEDS: CALCIUM CARBONATE 500 MG TABLET PO SCH ×3 (09:00→21:12)
[2019-10-31] MEDS: TAMSULOSIN 0.4 MG CAP.ER.24H PO SCH (09:04)
[2019-10-31] MEDS: ASPIRIN 81 MG TABLET EC PO SCH (09:04)
[2019-10-31] MEDS: POLYETHYLENE GLYCOL 17 GM PACKET PO SCH (09:05)
[2019-10-31] MEDS ORDERED: GADOTERATE 7.5 MMOL/15 ML SYR ONE (10:32)
[2019-10-31 13:17] VITALS: BP 158/69
[2019-10-31] MEDS: LIDODERM REMOVE PATCH NOTE XX SCH (14:00)
[2019-10-31] MEDS: NICOTINE 21 MG/24 HR PATCH.TD24 TD SCH (15:00)
[2019-10-31] MEDS: ENOXAPARIN 30 MG/0.3 ML SQ SCH (15:01)
[2019-10-31] MEDS: ACETAMINOPHEN 325 MG TABLET PO PRN ×2 (16:59→21:12)
[2019-10-31] MEDS: PHENAZOPYRIDINE 100 MG TABLET PO SCH ×2 (16:59→21:12)
[2019-10-31 21:03] VITALS: BP 150/74
[2019-10-31] MEDS: FLAVOXATE 100 MG TABLET PO SCH (21:12)
[2019-10-31] MEDS: INSULIN GLARGINE 100 UNITS/ML, PEN SQ-INSULIN SCH (21:14)
[2019-11-01 02:06] VITALS: BP 84/42
[2019-11-01 02:12] VITALS: BP 113/59
[2019-11-01] MEDS: LIDODERM 5% PATCH TD SCH (02:13)
[2019-11-01] MEDS: AMPICILLIN 500 MG in SODIUM CHLORIDE 0.9% 100 ML IV SCH ×2 (05:30→12:23)
[2019-11-01] MEDS: PANTOPRAZOLE 40MG TABLET PO SCH (06:12)
[2019-11-01] MEDS: METHOCARBAMOL 500 MG TABLET PO SCH ×2 (06:12→11:22)
[2019-11-01] MEDS: LEVOTHYROXINE 88 MCG TABLET PO SCH (06:12)
[2019-11-01] MEDS: ACETAMINOPHEN 325 MG TABLET PO PRN (06:17)
[2019-11-01 07:43] VITALS: BP 107/56
[2019-11-01] MEDS: INSULIN LISPRO 100 UNITS/ML, PEN SQ-INSULIN SCH ×2 (08:46→11:22)
[2019-11-01] MEDS: ASPIRIN 81 MG TABLET EC PO SCH (08:48)
[2019-11-01] MEDS: TAMSULOSIN 0.4 MG CAP.ER.24H PO SCH (08:48)
[2019-11-01] MEDS: ATORVASTATIN 10 MG TABLET PO SCH (08:48)
[2019-11-01] MEDS: CILOSTAZOL 100 MG TABLET PO SCH (08:48)
[2019-11-01] MEDS: PREGABALIN 100 MG CAPSULE PO SCH (08:49)
[2019-11-01] MEDS: SENNA/DOCUSATE TABLET PO SCH ×2 (08:50→08:56)
[2019-11-01] MEDS: PHENAZOPYRIDINE 100 MG TABLET PO SCH (08:50)
[2019-11-01] MEDS: POLYETHYLENE GLYCOL 17 GM PACKET PO SCH ×2 (08:50→08:56)
[2019-11-01] MEDS: AMLODIPINE 5 MG TABLET PO SCH (08:50)
[2019-11-01] MEDS: FLAVOXATE 100 MG TABLET PO SCH (08:50)
[2019-11-01] MEDS: CHOLECALCIFEROL 1,000 UNIT TABLET PO SCH (08:50)
[2019-11-01] MEDS: CALCIUM CARBONATE 500 MG TABLET PO SCH (08:50)
[2019-11-01] MEDS ORDERED: AMOX-291 PO (09:59)
[2019-11-01] MEDS ORDERED: PHEN-582 PO (09:59)
[2019-11-01] MEDS ORDERED: CALC500T11 PO (09:59)
[2019-11-01] MEDS ORDERED: LIDO700A20 TD (09:59)
[2019-11-01] MEDS ORDERED: CHOL10003 PO (09:59)
[2019-11-01] MEDS ORDERED: LEVO88TA2 PO (09:59)
[2019-11-01] MEDS ORDERED: ACET325T26 PO (09:59)
[2019-11-01] MEDS ORDERED: METH500T7 PO (09:59)
[2019-11-01] MEDS ORDERED: SENN-193 PO (09:59)
[2019-11-01] MEDS: BUDESONIDE 0.5 MG/2 ML INHA NPPB SCH (11:40)
[2019-11-01] MEDS: ALBUTEROL SULFATE 2.5 MG/3 ML NPPB SCH (11:40)
[2019-11-01 13:38] VITALS: BP 104/51
[2019-11-01] MEDS ORDERED: MEDROXYPROGESTERONE ACETATE 150 MG/ML IM ONE (15:30)
== END 2019-11-01 15:30 | disposition home health service (06) | DRG 314 ==
LOC: ED 11:34 → EDIP 12:47 → 3N 13:05
PROVIDERS: ADMIT Hospitalist; ATTEND Hospitalist
PROC: 0T9B70Z Drainage of Bladder with Drainage Device, Via Natural or Artificial Opening (ICD-10-PCS; principal; 2019-10-28)
DX: T82.858A Stenosis of other vascular prosthetic devices, implants and grafts, initial encounter (principal); N17.0 Acute kidney failure with tubular necrosis; N39.0 Urinary tract infection, site not specified; L03.115 Cellulitis of right lower limb; L03.116 Cellulitis of left lower limb; J96.10 Chronic respiratory failure, unspecified whether with hypoxia or hypercapnia; I07.1 Rheumatic tricuspid insufficiency; Z88.6 Allergy status to analgesic agent; Z88.8 Allergy status to other drugs, medicaments and biological substances; B95.2 Enterococcus as the cause of diseases classified elsewhere; E11.51 Type 2 diabetes mellitus with diabetic peripheral angiopathy without gangrene; F17.200 Nicotine dependence, unspecified, uncomplicated; G89.29 Other chronic pain; H91.90 Unspecified hearing loss, unspecified ear; I10 Essential (primary) hypertension; I25.10 Atherosclerotic heart disease of native coronary artery without angina pectoris; I65.21 Occlusion and stenosis of right carotid artery; K59.09 Other constipation; T40.605A Adverse effect of unspecified narcotics, initial encounter; Z79.4 Long term (current) use of insulin; Z83.3 Family history of diabetes mellitus; Z86.73 Personal history of transient ischemic attack (TIA), and cerebral infarction without residual deficits; Z90.710 Acquired absence of both cervix and uterus; J44.9 Chronic obstructive pulmonary disease, unspecified; Y83.8 Other surgical procedures as the cause of abnormal reaction of the patient, or of later complication, without mention of misadventure at the time of the procedure; Y92.89 Other specified places as the place of occurrence of the external cause
CPT/HCPCS: 36415; 71045; 72110; 72158; 76770; 80053; 81001; 82962; 83036; 83605; 83880; 84443; 84484; 85025; 87040; 87077; 87086; 87186; 93005; 93306; 93880; 93922; 93925; 93970; 94640; 96374; 96375; G0378; J0696; J1170; J1650; J1885; J2405; J3480; J7613; J7626; Q0162; A9575; C9113; J0290; J1815; J2270

== ENCOUNTER 2019-12-22 13:19 | Emergency (ER) | payer MEDICARE ==
[~2019-12-22] VITALS: Ht 154.9 cm; Wt 62.0 kg
[~2019-12-22 13:19] MED LIST changes: +ACET325T26 PO; +AMLO-150 PO; +AMOX-291 PO; +ATORVASTATIN PO; +CALC500T11 PO; +CHOL10003 PO; +LEVO88TA2 PO; -MERO1VIA15 IV; +MERO1VIA24 IV; +OMEP-110 PO; +PHEN-582 PO; +PREG100C PO; +SENN-193 PO; +TIOT4MIS3 INH
--- NOTE | 2019-12-22 14:26 | NUR ---
VS UPDATED. HERNÁN AWAN AND ORDERS REC'D
--- NOTE | 2019-12-22 14:31 | NUR ---
BLANKET INSPECTOR: PT TO ROOM AT THIS TIME VIA WHEELCHAIR.
--- NOTE | 2019-12-22 14:59 | NUR ---
IV STARTED, LABS DRAWN AND SENT. PT ALERT AND ORIENTED, SLOW SPEECH. DAUGHTER AT BEDSIDE. CALL LIGHT IN REACH. ERP IN TO EVAL.
[2019-12-22 15:15] LABS: ALANINE AMINOTRANSFERASE 21 U/L (12-78); ALBUMIN 3.8 g/dL (3.4-5.0); ANION GAP 7 mmol/L (5-15); CALCIUM 9.4 mg/dL (8.5-10.1); CHLORIDE 111 mmol/L (98-107)
[2019-12-22 15:16] LABS: BASOPHILS # (AUTO) 0.04 x10^3/uL (0-0.1); BASOPHILS % (AUTO) 1 % (0-1); EOSINOPHILS # (AUTO) 0.08 x10^3/uL (0-0.4); EOSINOPHILS % (AUTO) 1 % (1-7); LYMPHOCYTES # (AUTO) 1.71 x10^3/uL (1-3.4); LYMPHOCYTES % (AUTO) 26 % (22-44); MD NO; MEAN CORPUSCULAR HEMOGLOBIN 28.3 pg (27.0-34.8); MEAN CORPUSCULAR HGB CONC 32.7 g/dL (32.4-35.8); MEAN CORPUSCULAR VOLUME 86.6 fL (80-100); MONOCYTES # (AUTO) 0.34 x10^3/uL (0.2-0.8); MONOCYTES % (AUTO) 5 % (2-9); NEUTROPHILS # (AUTO) 4.49 x10^3/uL (1.8-6.8); NEUTROPHILS % (AUTO) 68 % (42-75); PLATELET COUNT 347 x10^3/uL (130-400); RED BLOOD COUNT 5.49 x10^6/uL (3.82-5.3)
[2019-12-22 15:18] LABS: ALKALINE PHOSPHATASE 100 U/L (45-117); BILIRUBIN,TOTAL 0.6 mg/dL (0.2-1.0); CREATININE 1.08 mg/dL (0.55-1.02); TOTAL PROTEIN 8.7 g/dL (6.4-8.2)
--- NOTE | 2019-12-22 15:21 | NUR ---
CATHETER CLAMPED FOR SAMPLE COLLECTION. PT AND FAMILY PROVIDED WITH INSTRUCTIONS, CALL LIGHT IN REACH.
[2019-12-22] MEDS ORDERED: SODIUM CHLORIDE FLUSH 10ML SYR IVF ONE (15:30)
--- NOTE | 2019-12-22 16:21 | NUR ---
URINE SAMPLE COLLECTED AND SENT. PT DENIES ANY NEEDS OR CONCERNS AT THIS TIME. CALL LIGHT IN REACH.
[2019-12-22 16:46] LABS: MICROSCOPIC INDICATED
--- NOTE | 2019-12-22 17:57 | NUR ---
PT UP TO BEDSIDE COMMODE FOR BOWEL MOVEMENT WITH FAMILY ASSISTANCE PER REQUEST. RETURNED TO BED WITHOUT ISSUE. CALL LIGHT IN REACH.
[2019-12-22] MEDS ORDERED: CEFTRIAXONE PMX 1GM/50ML 50 ML IVPB ONE (18:00)
[2019-12-22] MEDS ORDERED: CEFTRIAXONE PMX 1GM/50ML 50 ML ONE (18:04)
[2019-12-22 18:11] VITALS: BP 143/63
[2019-12-26] MEDS ORDERED: LISI-167 PO ×3 (11:06→11:14)
[2019-12-26] MEDS ORDERED: Sulfameth./Trimethoprim Ds PO (11:06)
== END 2019-12-22 18:55 | disposition home or self-care (01) ==
LOC: ED 16:52
DX: N30.00 Acute cystitis without hematuria (principal); I10 Essential (primary) hypertension; E11.9 Type 2 diabetes mellitus without complications; I25.10 Atherosclerotic heart disease of native coronary artery without angina pectoris; J44.9 Chronic obstructive pulmonary disease, unspecified
CPT/HCPCS: 36415; 71045; 80053; 81001; 85025; 87077; 87086; 87186; 96365; 99284; J0696

== ENCOUNTER 2020-01-22 06:26 | Day surgery (SDC) | payer MEDICARE ==
[~2020-01-22] VITALS: Ht 154.9 cm; Wt 56.0 kg
[~2020-01-22 06:26] MED LIST changes: +LISI-167 PO; +Sulfameth./Trimethoprim Ds PO
[2020-01-22] MEDS ORDERED: LIDOCAINE 2%, 20ML ONE (06:43)
[2020-01-22] MEDS ORDERED: SODIUM CHLORIDE 0.9% 1,000 ML IV SCH (07:02)
[2020-01-22] MEDS ORDERED: FENTANYL PF 100 MCG/2ML ONE (07:20)
[2020-01-22] MEDS ORDERED: NALOXONE 1 MG/ML, 2ML ONE (07:21)
[2020-01-22] MEDS ORDERED: FLUMAZENIL 0.1 MG/1 ML, 5ML ONE (07:21)
[2020-01-22] MEDS ORDERED: PROTAMINE SULFATE 10 MG/ML, 25ML ONE (07:21)
[2020-01-22] MEDS ORDERED: HEPARIN 1,000 UNITS/ML, 10ML ONE (07:21)
[2020-01-22] MEDS ORDERED: MIDAZOLAM 1 MG/ML, 5ML ONE (07:21)
[2020-01-22] MEDS ORDERED: VISIPAQUE 270 MG/ML, 50ML BOTTLE ONE (07:30)
[2020-01-22 07:45] VITALS: BP 156/78
[2020-01-22] MEDS ORDERED: LISI-167 PO (07:51)
[2020-01-22] MEDS ORDERED: INSU100V8 SQ (07:51)
[2020-01-22] MEDS ORDERED: TRAM50TA2 PO (07:51)
[2020-01-30] MEDS ORDERED: TRAM100T39 PO (22:28)
[2020-02-10] MEDS ORDERED: OXYC5TAB3 PO (10:48)
[2020-02-10] MEDS ORDERED: CLIN300C8 PO (10:48)
[2020-02-10] MEDS ORDERED: AMLO2.5T5 PO (10:48)
[2020-02-10] MEDS ORDERED: LISI-167 PO (10:48)
[2020-02-10] MEDS ORDERED: TRAM50TA2 PO (10:48)
== END 2020-01-22 13:20 | disposition home or self-care (01) ==
LOC: OUT 06:26
PROVIDERS: ATTEND Surgery Vascular Surgery
DX: I70.213 Atherosclerosis of native arteries of extremities with intermittent claudication, bilateral legs (principal); E03.9 Hypothyroidism, unspecified; E11.40 Type 2 diabetes mellitus with diabetic neuropathy, unspecified; I16.0 Hypertensive urgency; I50.9 Heart failure, unspecified; Z88.5 Allergy status to narcotic agent; Z88.8 Allergy status to other drugs, medicaments and biological substances; Z79.82 Long term (current) use of aspirin; Z72.0 Tobacco use; Z89.411 Acquired absence of right great toe; Z86.73 Personal history of transient ischemic attack (TIA), and cerebral infarction without residual deficits; Z90.710 Acquired absence of both cervix and uterus; Z90.49 Acquired absence of other specified parts of digestive tract; Z98.890 Other specified postprocedural states; Z79.4 Long term (current) use of insulin
CPT/HCPCS: 36200; 75625; 75716; 99156; 99157; C1751; C1769; C1894; J1644; J2250; J3010; J7030; Q9966; 36415; 75630; 87635; J2720; J2310

== ENCOUNTER → 2020-07-28 | Outpatient (CLI) | payer MEDICARE ==
[~2020-07-28] MED LIST changes: +AMLO2.5T5 PO; +CLIN300C9 PO; +INSU100V8 SQ; +METH-639 PO; -METH500T7 PO; +OXYC5TAB98 PO; +TRAM100T39 PO
== END | disposition home or self-care (01) ==
LOC: RAD 14:35
PROVIDERS: ATTEND Nurse Practitioner Family
DX: J44.9 Chronic obstructive pulmonary disease, unspecified (principal); E78.2 Mixed hyperlipidemia; I10 Essential (primary) hypertension
CPT/HCPCS: 71046